=== PATIENT | male | born 1970 | race Caucasian/White ===

== ENCOUNTER 2024-07-09 08:33 | Emergency (ER) | payer BC ==
[~2024-07-09] VITALS: Ht 172.7 cm; Wt 85.2 kg
[~2024-07-09 08:33] MED LIST: LISI20TA28 PO
[2024-07-09 08:39] VITALS: TEMP 97.2
[2024-07-09 09:59] LABS: BASOPHILS % (AUTO) 0.5 % (0-1); EOSINOPHILS # (AUTO) 0.2 X10'3 (0-0.9); EOSINOPHILS % (AUTO) 2.4 % (0-6); HEMATOCRIT 45.9 % (42.0-52.0); HEMOGLOBIN 15.2 g/dl (14.0-17.9); LYMPHOCYTES # (AUTO) 1.3 X10'3 (1.1-4.8); LYMPHOCYTES % (AUTO) 13.9 % (21-51); MEAN CORPUSCULAR HEMOGLOBIN 29.4 PG (27.0-31.0); MEAN CORPUSCULAR HGB CONC 33.1 g/dL (33.0-36.5); MEAN CORPUSCULAR VOLUME 88.7 FL (78-98); MEAN PLATELET VOLUME 9.1 FL (7.4-10.4); MONOCYTES # (AUTO) 0.9 X10'3 (0-0.9); MONOCYTES % (AUTO) 9.4 % (2-12); NEUTROPHILS # (AUTO) 6.9 X10'3 (1.8-7.7); NEUTROPHILS % (AUTO) 73.8 % (42-75); PLATELET COUNT 171 X10'3 (140-440); RED BLOOD COUNT 5.17 X10'6 (4.70-6.10); WHITE BLOOD COUNT 9.4 X10'3 (4.5-11.0)
[2024-07-09 10:12] LABS: ALANINE AMINOTRANSFERASE 35 U/L (12-78); ALBUMIN 3.7 G/DL (3.4-5.0); ALKALINE PHOSPHATASE 57 IU/L (46-116); AMYLASE 72 U/L (25-115); ANION GAP 11 (8-16); ASPARTATE AMINO TRANSFERASE 14 U/L (10-37); BILIRUBIN,TOTAL 0.6 MG/DL (0.1-1.0); BLOOD UREA NITROGEN 33 MG/DL (7-18); BUN/CREATININE RATIO 14.5 (10.0-20.0); CHLORIDE 105 MMOL/L (99-107); CREATININE 2.27 MG/DL (0.60-1.10); GLUCOSE 184 MG/DL (70-104); LIPASE 54 U/L (16-77); POTASSIUM 4.1 MMOL/L (3.5-5.1); SODIUM 141 MMOL/L (135-145); TOTAL CARBON DIOXIDE 25.1 MMOL/L (24-32); TOTAL PROTEIN 7.5 G/DL (6.4-8.2); eCRCL 36 ML/MIN; eGFR 30 ML/MIN
[2024-07-09] MEDS: normal saline 1000ML IV soln IVB ONE (11:25)
[2024-07-09] MEDS: ketorolac trometh 30MG/ML vial 30 MG/ML VIAL IV ONE (11:36)
[2024-07-09 11:46] LABS: BILIRUBIN,URINE NEGATIVE (Neg); CLARITY,URINE SLIGHTLY CLOUDY (Clear); COLOR,URINE YELLOW (Yellow); GLUCOSE, URINE >=1000 mg/dl (Neg); KETONES,URINE 15 mg/dl (Neg); LEUKOCYTE ESTERASE ,URINE NEGATIVE (Neg); NITRITES, URINE NEGATIVE (Neg); OCCULT BLOOD,URINE LARGE (Neg); PH,URINE 5.5 (4.8-8.0); PROTEIN,URINE 30 mg/dl (Neg); UROBILINOGEN,URINE 0.2 E.U/dL (0.2-1.0)
[2024-07-09 11:49] LABS: UA COLLECTION TYPE CLN CATCH MIDSTREAM
[2024-07-09 12:01] LABS: SQUAMOUS EPITHELIAL CELL,UR MODERATE /LPF (FEW)
[2024-07-09 12:02] LABS: RBC,URINE TNTC /HPF (0-2)
[2024-07-09 12:03] LABS: BACTERIA,URINE FEW /HPF (Neg)
[2024-07-09 12:58] VITALS: PULSE 72
[2024-07-09] MEDS ORDERED: SULF1TAB49 PO (13:42)
[2024-07-09] MEDS ORDERED: HYDR-3973 PO (13:42)
[2024-07-09 13:52] VITALS: BP 166/99; RESP 16; O2SAT 97
== END 2024-07-09 13:54 | disposition home or self-care (01) ==
LOC: ER 08:34
DX: N20.1 Calculus of ureter (principal); E11.9 Type 2 diabetes mellitus without complications; I10 Essential (primary) hypertension; F17.210 Nicotine dependence, cigarettes, uncomplicated; Z88.8 Allergy status to other drugs, medicaments and biological substances; Z79.899 Other long term (current) drug therapy
CPT/HCPCS: 36415; 74176; 80053; 81001; 82150; 83690; 85025; 87088; 96361; 96374; 99285; J1885; J7030

== ENCOUNTER 2024-07-25 21:44 | Inpatient (IN) | payer BC ==
[~2024-07-25] VITALS: Ht 172.7 cm; Wt 85.8 kg
[~2024-07-25 21:44] MED LIST changes: +HYDR-3973 PO
[2024-07-25 23:11] LABS: BASOPHILS # (AUTO) 0.1 X10'3 (0-0.2); BASOPHILS % (AUTO) 1.5 % (0-1); EOSINOPHILS # (AUTO) 0.4 X10'3 (0-0.9); EOSINOPHILS % (AUTO) 4.8 % (0-6); HEMATOCRIT 42.5 % (42.0-52.0); HEMOGLOBIN 14.6 g/dl (14.0-17.9); LYMPHOCYTES # (AUTO) 2.3 X10'3 (1.1-4.8); LYMPHOCYTES % (AUTO) 30.2 % (21-51); MEAN CORPUSCULAR HEMOGLOBIN 30.2 PG (27.0-31.0); MEAN CORPUSCULAR HGB CONC 34.4 g/dL (33.0-36.5); MEAN CORPUSCULAR VOLUME 87.8 FL (78-98); MEAN PLATELET VOLUME 8.4 FL (7.4-10.4); MONOCYTES # (AUTO) 0.5 X10'3 (0-0.9); MONOCYTES % (AUTO) 6.9 % (2-12); NEUTROPHILS # (AUTO) 4.2 X10'3 (1.8-7.7); NEUTROPHILS % (AUTO) 56.6 % (42-75); PLATELET COUNT 233 X10'3 (140-440); RED BLOOD COUNT 4.84 X10'6 (4.70-6.10); RED CELL DISTRIBUTION WIDTH 13.8 % (11.5-14.5); WHITE BLOOD COUNT 7.5 X10'3 (4.5-11.0)
[2024-07-25 23:31] LABS: ALANINE AMINOTRANSFERASE 34 U/L (12-78); ALBUMIN 4.1 G/DL (3.4-5.0); ALKALINE PHOSPHATASE 90 IU/L (46-116); ANION GAP 13 (8-16); BILIRUBIN,TOTAL 0.3 MG/DL (0.1-1.0); BLOOD UREA NITROGEN 27 MG/DL (7-18); BUN/CREATININE RATIO 12.9 (10.0-20.0); CALCIUM 9.3 MG/DL (8.5-10.1); CHLORIDE 104 MMOL/L (99-107); LIPASE 70 U/L (16-77); SODIUM 141 MMOL/L (135-145); TOTAL CARBON DIOXIDE 23.8 MMOL/L (24-32); TOTAL PROTEIN 8.4 G/DL (6.4-8.2); eCRCL 39 ML/MIN; eGFR 33 ML/MIN
[2024-07-25 23:35] LABS: ASPARTATE AMINO TRANSFERASE 12 U/L (10-37); GLUCOSE 178 MG/DL (70-104); POTASSIUM 4.2 MMOL/L (3.5-5.1)
[2024-07-26] MEDS ORDERED: potassium Cl 40MEQ/1/2NS 520ml 520 ML IV PRN (00:35)
[2024-07-26] MEDS ORDERED: magnesium Cl slow-release 64mg tablet PO PRN (00:35)
[2024-07-26] MEDS ORDERED: magnesium sulf-water 2g/50mL 50 ML IV PRN (00:35)
[2024-07-26] MEDS ORDERED: magnesium sulf-water 4G/100mL 100 ML IV PRN (00:35)
[2024-07-26] MEDS: normal saline 1000ml 1,000 ML IV SCH (00:35)
[2024-07-26] MEDS ORDERED: morphine 2 MG/ML inj. syringe IV PRN (00:35)
[2024-07-26] MEDS ORDERED: ondansetron/PF 4mg/2ml inj IV PRN (00:35)
[2024-07-26] MEDS ORDERED: acetaminophen 325mg tablet PO PRN (00:35)
[2024-07-26] MEDS ORDERED: mag hydrox/Alum hydrox/simeth 30ml oral suspension PO PRN (00:35)
[2024-07-26] MEDS ORDERED: potassium Cl 20 mEq SR tablet PO PRN ×2 (00:35)
[2024-07-26] MEDS ORDERED: magnesium hydroxide 30ml (MOM) UD suspension PO PRN (00:35)
[2024-07-26] MEDS: ketorolac trometh 15mg/ml vial 15 MG/ML ML IV ONE (01:22)
[2024-07-26] MEDS: normal saline 1000ml 1,000 ML IV ONE (01:23)
[2024-07-26] MEDS: ondansetron/PF 4mg/2ml inj IV ONE (01:23)
[2024-07-26] MEDS ORDERED: NEBI20TA6 (03:01)
[2024-07-26] MEDS ORDERED: EMPA10TA (03:01)
[2024-07-26] MEDS ORDERED: AMLO5TAB16 (03:01)
[2024-07-26 03:05] LABS: POTASSIUM 3.8 MMOL/L (3.5-5.1)
[2024-07-26 03:23] LABS: BILIRUBIN,URINE NEGATIVE (Neg); CLARITY,URINE CLEAR (Clear); COLOR,URINE YELLOW (Yellow); GLUCOSE, URINE >=1000 mg/dl (Neg); KETONES,URINE TRACE mg/dl (Neg); LEUKOCYTE ESTERASE ,URINE NEGATIVE (Neg); NITRITES, URINE NEGATIVE (Neg); OCCULT BLOOD,URINE NEGATIVE (Neg); PH,URINE 5.5 (4.8-8.0); PROTEIN,URINE NEGATIVE (Neg); UROBILINOGEN,URINE 0.2 E.U/dL (0.2-1.0)
[2024-07-26 03:27] LABS: UA COLLECTION TYPE URINAL
[2024-07-26 03:28] LABS: BACTERIA,URINE FEW /HPF (Neg); RBC,URINE NONE SEEN /HPF (0-2); SQUAMOUS EPITHELIAL CELL,UR FEW /LPF (FEW); WBC,URINE 0-4 /HPF (0-4)
[2024-07-26 03:29] VITALS: BP 174/98; PULSE 68; RESP 14; TEMP 98.2; O2SAT 96
[2024-07-26 03:29] LABS: MUCUS STRANDS FEW /LPF (Neg)
[2024-07-26 06:00] VITALS: BP 159/98; PULSE 73; RESP 16; TEMP 96.8; O2SAT 98
[2024-07-26] MEDS: heparin, porcine 5000 units/ml vial SQ SCH (08:00)
[2024-07-26] MEDS: K and/or MAG REPLACEMENT MC SCH (08:00)
[2024-07-26] MEDS: HYDROmorphone inj. 0.5 MG/0.5 ML DISP.SYRIN IV PRN (08:43)
[2024-07-26] MEDS: tamsulosin 0.4mg capsule PO SCH (08:44)
[2024-07-26] MEDS: docusate sod 100mg capsule PO SCH (08:45)
[2024-07-26 10:00] VITALS: BP 157/92; PULSE 64; RESP 14; TEMP 97.6; O2SAT 98
[2024-07-26] MEDS ORDERED: lisinopril 20mg tablet PO SCH (12:50)
[2024-07-26] MEDS ORDERED: EMPAGLIFLOZIN 10 MG TABLET PO SCH (12:50)
[2024-07-26] MEDS ORDERED: tamsulosin capsule PO (15:02)
[2024-07-26] MEDS ORDERED: HYDR-3965 PO (15:02)
[2024-07-26] MEDS ORDERED: metoprolol tartrate 50mg tablet PO SCH (20:00)
[2024-07-26] MEDS ORDERED: enoxaparin 40mg/0.4ml syringe SQ SCH (20:00)
[2024-07-27] MEDS ORDERED: amLODIPine 5mg tablet PO SCH (08:00)
== END 2024-07-26 15:15 | disposition home or self-care (01) | DRG 694 ==
LOC: ER 21:44 → ED HOLD 07-26 00:15 → ORTHO 4S 07-26 03:20
PROVIDERS: ADMIT Internal Medicine Critical Care Medicine; ATTEND Internal Medicine
DX: N13.2 Hydronephrosis with renal and ureteral calculous obstruction (principal); I10 Essential (primary) hypertension; N17.9 Acute kidney failure, unspecified; E66.01 Morbid (severe) obesity due to excess calories; N28.1 Cyst of kidney, acquired; E11.9 Type 2 diabetes mellitus without complications; Z87.442 Personal history of urinary calculi; Z83.3 Family history of diabetes mellitus; Z82.49 Family history of ischemic heart disease and other diseases of the circulatory system; Z88.1 Allergy status to other antibiotic agents; Z68.28 Body mass index [BMI] 28.0-28.9, adult
CPT/HCPCS: 36415; 74176; 80053; 81001; 83690; 83735; 84132; 85025; 87081; 99285; G0378; J1171; J1644; J1885; J2405; J7030